=== PATIENT | male | born 2005 | race Caucasian/White ===

== ENCOUNTER 2023-05-02 09:20 | Emergency (ER) | payer OTHER, SELFPAY ==
[2023-05-02 09:23] VITALS: BP 126/93
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
[2023-05-02] MEDS: MOTRIN 600 MG PO (10:02)
[2023-05-02 11:00] VITALS: BP 122/67
== END 2023-05-02 11:27 | disposition home or self-care (01) ==
LOC: EMR 09:20
PROVIDERS: EMERGENCY PHYSICIAN Student in an Organized Health Care Education/Training Program
DX: S80.02XA Contusion of left knee, initial encounter (principal); V49.40XA Driver injured in collision with unspecified motor vehicles in traffic accident, initial encounter
CPT/HCPCS: 99283; 73564